=== PATIENT | female | born 1960 | race Caucasian/White ===

== ENCOUNTER → 2016-12-17 | Outpatient (CLI) | payer OTHER ==
[~2016-12-17] MED LIST: GASTROGRAFIN SOLUTION 30ML (Q9963) As Ordered ONE; ISOVUE-370 76% 100ML VIAL (Q9967) As Ordered ONE
--- NOTE | 2016-12-17 17:17 | REP ---
CT of the abdomen and pelvis without and with IV contrast. After IV contrast and imaging is performed during the late arterial / portal venous phase of enhancement and again later during the delayed equilibrium phase of enhancement. There are no comparisons. The visualized lung dyson are unremarkable. The hepatic parenchyma is homogeneous on all phases of the study. There are no hepatic masses. I suspect there is a small gallbladder calculus in the gallbladder fundus. The gallbladder is otherwise unremarkable. The pancreas and spleen are normal size and unremarkable. The kidneys, adrenals and abdominal aorta are unremarkable. There is no retroperitoneal or periaortic adenopathy. There is no bowel distension or obstruction. No mesenteric adenopathy. No ascites. Pelvis: The uterus and adnexa are unremarkable. There is descending colon and sigmoid colon diverticulosis without diverticulitis. There is no adenopathy or ascites. There are no lytic, blastic or destructive skeletal changes. Impression: No evidence of adenopathy or metastatic disease. 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 Otherwise, essentially negative CT of the abdomen and pelvis. Signed by Pradip Tafoya MD 12/17/2016 05:08 P
== END ==
LOC: M RAD 13:53
PROVIDERS: ATTEND Surgery
DX: C21.0 Malignant neoplasm of anus, unspecified (principal); M43.16 Spondylolisthesis, lumbar region
CPT/HCPCS: 74178; Q9963; Q9967

== ENCOUNTER → 2016-12-24 | Outpatient (CLI) | payer OTHER ==
--- NOTE | 2016-12-26 14:57 | RADONC ---
RADIATION ONCOLOGY CONSULTATION NOTE DATE: 12/24/2016 CHART NUMBER: [id number]. DIAGNOSIS: Anal carcinoma. STAGE: II, T3N0M0. ECOG PERFORMANCE STATUS: Zero. CONSULTATION NOTE: Ms. 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 HISTORY OF PRESENT ILLNESS: The patient reports that she noticed a small lesion on her anus on the right side of her anal area, which she thought initially with a hemorrhoid. She reported that it has rapidly increased in size over the past 3 months. On 12/09/2016, she underwent anal biopsy with Dr. Fred Sifuentes and pathology revealed invasive moderately differentiated squamous cell carcinoma with focal keratinization. There appeared to be muscularis propria invasion. A CT scan was done on 12/17/2016, which showed no evidence of metastatic disease or lymphadenopathy. The patient is now presenting to us for discussion of external beam radiation therapy as a therapeutic option. PAST MEDICAL HISTORY: The patient's past medical history is positive for hypertension and anxiety. It is otherwise noncontributory. ALLERGIES: The patient has NO KNOWN DRUG ALLERGIES. SOCIAL HISTORY: The patient has smoked half-a-pack of cigarettes per year for 2 years, she says. She drinks alcohol regularly. FAMILY HISTORY: The patient's family history is negative for anal carcinoma or other malignancies. REVIEW OF SYSTEMS: The patient's review of systems is positive for some rectal bleeding and anxiety but is otherwise noncontributory. Denies nausea, vomiting, fevers, chills, night sweats, diplopia, headaches, anxiety or depression, anorexia, weight loss, visual disturbances, chest pain, urinary or bowel difficulties, bone pain, or neurological problems. PHYSICAL EXAMINATION: The patient is a well-developed, well-nourished, 56-year-old white female, in no acute distress. HEENT exam is normocephalic, atraumatic. Extraocular movements are intact. There is no palpable cervical, supraclavicular, infraclavicular, axillary, or inguinal lymphadenopathy present. Lungs are clear to auscultation and percussion. Heart has a regular rate and rhythm. Abdomen is benign with no hepatosplenomegaly, masses, or tenderness. Skeletal examination reveals no tenderness to pressure or percussion of the bony skeleton. Extremities reveal no clubbing, cyanosis, or edema. Neurologic exam is grossly intact, as is the remainder of the physical examination. Rectal examination reveals a right-sided a rectal mass measuring approximately 6 cm in diameter. IMAGING: I personally reviewed the patient's CT scan done on 12/17/2016, which did not show any evidence of metastatic disease. MEDICAL NECESSITY: IMRT/IGRT is clinically indicated for the highly conformal dose planning required. The target volume is in close proximity to critical structures such as the rectum, bladder, small bowel and femoral heads. The volume of interest must be covered with narrow margins to adequately protect immediately adjacent structures. The plan requires interpretation of complex testing such as CT localization. As noted above, special planning (IMRT) and localizing (IGRT) is required and essential to maximally protect sensitive normal tissue structures which cannot be accomplished using conventional three-dimensional planning. ASSESSMENT: Clearly the patient is a candidate for external beam radiation therapy and I have so informed her. I have discussed with the patient in detail the potential benefits as well as possible acute and chronic sequelae of external beam radiation therapy. We have discussed logistics of treatment planning, simulation subsequent fractionated daily radiation treatments. I have scheduled the patient for the next available simulation slot and radiation treatments will begin subsequently. As noted above, IMRT will be utilized in order to maintain the normal structures within their tolerance limits while delivering the maximum amount of radiation to the at risk areas. I will also closely coordinate this patient's care with her medical oncologist, Dr. Murray. I will be discussing this case closely with him in order to expedite her treatment for what appears to be a rapidly growing anal situation. cc: Dr. Carvajal cc: MD Jose Pearl MD John D. Nicholson, MD
== END ==
LOC: M ONCR 10:02
PROVIDERS: ATTEND Radiology Radiation Oncology
DX: C21.0 Malignant neoplasm of anus, unspecified (principal)

== ENCOUNTER → 2016-12-29 | Outpatient (REF) | payer OTHER ==
[2016-12-29 18:30] LABS: INR 0.9
== END ==
LOC: M LAB REF 16:34
PROVIDERS: ATTEND Internal Medicine Medical Oncology
DX: C18.9 Malignant neoplasm of colon, unspecified (principal)

== ENCOUNTER 2017-01-06 14:13 | Outpatient (RCR) | payer OTHER ==
--- NOTE | 2017-01-07 09:20 | RADONC ---
RADIATION ONCOLOGY SIMULATION NOTE DATE: 01/06/2017 CHART NUMBER: [id number] Ms. Salas was taken to the CT scan for CT simulation of her anal IMRT field. CT was accomplished without difficulty or discomfort. Radiation treatment planning is underway and radiation treatments will begin subsequently. An immobilization device was created and will be used throughout the course of treatment. It was created without difficulty or discomfort. I was physically present throughout the course CT simulation.
== END 2017-01-07 ==
LOC: M ONCR 14:13
PROVIDERS: ATTEND Radiology Radiation Oncology
DX: C21.1 Malignant neoplasm of anal canal (principal)

== ENCOUNTER → 2017-01-06 | Outpatient (CLI) | payer OTHER | LOC: M RAD 13:59 | PROVIDERS: ATTEND Radiology Radiation Oncology | DX: C21.1 Malignant neoplasm of anal canal (principal) ==

== ENCOUNTER → 2017-01-06 | Outpatient (CLI) | payer OTHER, SELFPAY ==
[~2017-01-06] MED LIST changes: -GASTROGRAFIN SOLUTION 30ML (Q9963) As Ordered ONE; +HEPARIN 1,000 UNITS/ML 10ML VIAL (FOR RADIOLOGY& DIALYSIS ONLY) As Ordered; -ISOVUE-370 76% 100ML VIAL (Q9967) As Ordered ONE; +LIDOCAINE 2% MDV 20 ML VIAL As Ordered; +ceFAZolin 1GM INJ (J0690 PER 500MG) As Ordered
== END | disposition home or self-care (01) ==
LOC: M IRPRO 12:08
DX: C18.9 Malignant neoplasm of colon, unspecified (principal)
CPT/HCPCS: 36561

== ENCOUNTER 2017-01-08 14:22 | Outpatient (RCR) | payer OTHER | END 2017-02-07 | LOC: M ONCR 14:22 | DX: C21.1 Malignant neoplasm of anal canal (principal) | CPT/HCPCS: 77300 ==

== ENCOUNTER 2017-02-09 10:16 | Outpatient (RCR) | payer OTHER | END 2017-03-10 | LOC: M ONCR 10:16 | DX: C21.1 Malignant neoplasm of anal canal (principal) | CPT/HCPCS: 77336 ==

== ENCOUNTER 2017-03-11 11:05 | Outpatient (RCR) | payer OTHER | END 2017-04-07 | LOC: M ONCR 11:05 | DX: C21.1 Malignant neoplasm of anal canal (principal) | CPT/HCPCS: 77386 ==

== ENCOUNTER → 2017-03-16 | Outpatient (CLI) | payer OTHER ==
[~2017-03-16] MED LIST changes: -HEPARIN 1,000 UNITS/ML 10ML VIAL (FOR RADIOLOGY& DIALYSIS ONLY) As Ordered; -ceFAZolin 1GM INJ (J0690 PER 500MG) As Ordered
== END | disposition home or self-care (01) ==
LOC: M IRPRO 11:16
DX: Z45.2 Encounter for adjustment and management of vascular access device (principal); C20 Malignant neoplasm of rectum
CPT/HCPCS: 36590

== ENCOUNTER → 2017-04-14 | Outpatient (CLI) | payer OTHER | LOC: M ONCR 15:25 | DX: C21.1 Malignant neoplasm of anal canal (principal) | CPT/HCPCS: G0463 ==